=== PATIENT | female | born 1975 | race Two or more races ===

== ENCOUNTER → 2016-06-27 | Outpatient (REF) | payer OTHER | LOC: M LAB REF 17:00 | PROVIDERS: ATTEND Obstetrics & Gynecology | DX: Z12.4 Encounter for screening for malignant neoplasm of cervix (principal); R87.610 Atypical squamous cells of undetermined significance on cytologic smear of cervix (ASC-US) ==

== ENCOUNTER → 2016-07-07 | Outpatient (CLI) | payer OTHER ==
--- NOTE | 2016-07-07 17:54 | REPMRS ---
Patient History The patient states she has not had a clinical breast exam in over a year. Patient has history of endometrial cancer at age 35. Family history of prostate cancer in maternal grandfather, endometrial cancer in maternal aunt at age 16, and unknown cancer in maternal grandmother. Taking hormonal contraceptives for 2 years. Digital Mammo Screening Bilat: July 07, 2016 - Exam #: [id number] Bilateral CC and MLO view(s) were taken. Technologist: Shaila Yadav, Technologist No prior studies available for comparison. FINDINGS: The breast tissue is heterogeneously dense. This may lower the sensitivity of mammography. There is no evidence of dominant mass, architectural distortion, or clustered microcalcification typical of malignancy. ASSESSMENT: BI-RADS/ACR category 2 mammogram. Benign finding(s). Recommendation Routine screening mammogram of both breasts in 1 year (for women over age 40). This mammogram was interpreted with the aid of an FDA-approved computer-aided dectection system. Electronically Signed By: Eros Cutler MD 07/07/16 [id number]
--- NOTE | 2016-07-08 03:25 | REP ---
Clinical: Pelvic and cranial pain. History of cervical cancer. Technique: Transabdominal pelvic ultrasound followed by transvaginal examination for better evaluation of the endometrium and adnexa with color Doppler evaluation of the ovaries. Findings: Bladder is unremarkable and measures 8.5 x 5.6 x 3.6 cm . Normal anteverted uterus measures 7.8 x 3.6 x 4.8 cm . The endometrial complex measures 5.7 mm thickness. No discrete uterine or endometrial abnormalities are appreciated. IUD in satisfactory position. Small Nabothian cysts noted in the cervical region. Bilateral ovaries are normal in vascularity without evidence for torsion. Right ovary measures 2.5 x 2.4 x 2.8 cm with 1.6 cm resolving physiologic cyst ; R I = 0.51 . Left ovary measures 2.6 x 1.8 x 3.5 cm with normal follicle and 2.4 cm partially calcified mass suggesting teratoma/dermoid ; R I = 0.47. No pelvic fluid. No adnexal mass . Impression: 1. 2.4 cm partially calcified left ovarian mass possibly representing dermoid/teratoma. 2. Presumed bilateral follicles/physiologic cysts measuring up to 1.6 cm in the right ovary. 3. Normal appearance to the uterus with IUD in satisfactory position. Signed by Bolivar Cosby MD 07/08/2016 03:16 A
== END ==
LOC: M RAD 11:01
PROVIDERS: ATTEND Obstetrics & Gynecology
DX: Z12.31 Encounter for screening mammogram for malignant neoplasm of breast (principal); R10.2 Pelvic and perineal pain
CPT/HCPCS: 76830; 76856; 93976; G0202

== ENCOUNTER → 2016-08-19 | Outpatient (CLI) | payer OTHER ==
[~2016-08-19] MED LIST: ATOR1TAB19 PO; HYDR25T PO; LORA1TAB12 PO; MIREIUD IU; NEXI20CA PO; TOLT2TAB12 PO
== END ==
LOC: M EKG 07:19
PROVIDERS: ATTEND Anesthesiology
DX: G47.30 Sleep apnea, unspecified (principal)

== ENCOUNTER 2016-08-22 08:45 | Day surgery (SDC) | payer OTHER ==
[~2016-08-22] VITALS: Ht 167.6 cm; Wt 81.2 kg
[2016-08-22] MEDS ORDERED: LR 1,000 ML IV ONE (09:00)
[2016-08-22 09:36] LABS: MEAN CORPUSCULAR HEMOGLOBIN 33.4 pg (27.0-33.0); MEAN CORPUSCULAR HGB CONC 36.2 g/dl (32.0-36.5); MEAN CORPUSCULAR VOLUME 92.3 fl (80.0-96.0); WHITE BLOOD COUNT 7.8 K/mm3 (4.0-10.0)
[2016-08-22 09:55] LABS: CONTROL LINE HCG INT CTR LINE PRESENT
[2016-08-22] MEDS ORDERED: MIDAZOLAM INJ 2 MG/2 ML VIAL (J2250) IV PRN (10:15)
[2016-08-22] MEDS ORDERED: BUPIVACAINE HCL 0.25% 30 ML VIAL As Ordered ONE (11:45)
[2016-08-22] MEDS ORDERED: dexameTHASONE 4 MG/ML 1ML VIAL (J1100) As Ordered ONE (12:38)
[2016-08-22] MEDS ORDERED: LIDOCAINE 2% INJ 100 MG/5 ML SDV (FOR ANES.) As Ordered ONE (12:38)
[2016-08-22] MEDS ORDERED: ROCURONIUM BROMIDE 50 MG/5 ML VIAL As Ordered ONE ×2 (12:38→12:48)
[2016-08-22] MEDS ORDERED: MIDAZOLAM INJ 2 MG/2 ML VIAL (J2250) As Ordered ONE (12:38)
[2016-08-22] MEDS ORDERED: ONDANSETRON 4MG/2ML VIAL (J2405) As Ordered ONE (12:38)
[2016-08-22] MEDS ORDERED: fentaNYL 250 MCG/5 ML INJECTION (J3010) As Ordered ONE (12:38)
[2016-08-22] MEDS ORDERED: PROPOFOL 200 MG/20 ML VIAL As Ordered ONE (12:38)
[2016-08-22] MEDS ORDERED: HYDROmorphone HCL 2 MG/ML 1ML VIAL (J1170) As Ordered ONE (12:53)
[2016-08-22] MEDS ORDERED: METHYLENE BLUE 0.5% (5MG/ML) 10 ML AMP (PROVAYBLUE)(Q9968 PER 1MG) As Ordered ONE (12:57)
[2016-08-22] MEDS ORDERED: LABETALOL HCL 100 MG/20 ML VIAL As Ordered ONE (13:16)
[2016-08-22] MEDS ORDERED: KETOROLAC 60 MG/2 ML VIAL (J1885) As Ordered ONE (13:32)
[2016-08-22] MEDS ORDERED: NEOSTIGMINE 1MG/ML 5 ML SYRINGE (J2710) As Ordered ONE (13:32)
[2016-08-22] MEDS ORDERED: GLYCOPYRROLATE INJ 0.2 MG/ML 2 ML VIAL As Ordered ONE (13:32)
[2016-08-22] MEDS ORDERED: METOCLOPRAMIDE INJ 10MG/2ML VIAL (J2765) IV PRN (14:45)
[2016-08-22] MEDS ORDERED: MEPERIDINE INJ 25 MG/ML VIAL (J2175) IV PRN (14:45)
[2016-08-22] MEDS ORDERED: PERCOCET 5MG/325MG TAB PO PRN ×2 (14:45)
[2016-08-22] MEDS ORDERED: fentaNYL 100 MCG/2 ML INJECTION (J3010) IV PRN (14:45)
[2016-08-22] MEDS ORDERED: MORPHINE 4 MG/ML 1ML SYRINGE IV PRN (14:45)
[2016-08-22] MEDS ORDERED: HYDROmorphone HCL 1 MG/ML SYRINGE (J1170) IV PRN (14:45)
[2016-08-22] MEDS ORDERED: KETOROLAC 30 MG/ML VIAL (J1885) IV PRN (14:45)
[2016-08-22] MEDS ORDERED: PROMETHAZINE INJ 25 MG/ML VIAL (J2550) IV PRN (14:45)
[2016-08-22] MEDS ORDERED: LR 1,000 ML IV SCH (14:45)
[2016-08-22] MEDS ORDERED: ONDANSETRON 4MG/2ML VIAL (J2405) IV PRN (14:45)
[2016-08-22 16:30] VITALS: BP 108/66
--- NOTE | 2016-08-22 16:43 | RO ---
DATE OF PROCEDURE: 08/22/2016 PREPROCEDURE DIAGNOSES: 1. Abnormal uterine bleeding. 2. Left dermoid cyst. POSTPROCEDURE DIAGNOSES: 1. Abnormal uterine bleeding. 2. Left dermoid cyst. PROCEDURE: 1. Robotic assisted laparoscopic hysterectomy. 2. Left salpingo-oophorectomy. 3. Cystoscopy. 4. IUD removal. SURGEON: Bhavani Sheppard MD TRAVEL PT: ROBBIE Vigil ANESTHESIA: General endotracheal. ESTIMATED BLOOD LOSS: 100 mL INTRAVENOUS FLUIDS: 1700 mL of lactated Ringer's solution. SPECIMENS: Uterus and left adnexa. PREOPERATIVE ANTIBIOTICS: 2 grams of Ancef. OPERATIVE FINDINGS: The patient with a solid appearing left tumor consistent with dermoid cyst. A right follicular cyst which was drained intraoperatively. Normal appearing uterus. CYSTOSCOPIC FINDINGS: Good urethral efflux bilaterally. No evidence of trauma to the bladder or foreign bodies. DESCRIPTION OF OPERATION: After informed consent was obtained and written consent was reviewed, the patient was taken to the operating room where she was placed in lithotomy position. She was then prepped and draped in a normal sterile fashion. A time out in the operating room was then performed identifying the patient, procedures to be performed as well as drug allergies. A speculum was then placed revealing the cervix. A Sandra was used to remove the IUD. The anterior and posterior aspect of the cervix was in then stitched with an #0 Vicryl. The uterus was then sounded to 9 cm. A medium VCare uterine manipulator was then advanced through the cervical os for means to manipulate the uterus. The balloon was then insufflated with 10 mL of air. Cervical cap was then advanced down into the vagina. Instruments were removed from the patient's vagina. Castillo catheter was then placed and set to gravity. Gloves were changed and attention was turned to the patient's abdomen where a Veress needle was placed in the umbilicus and a pneumoperitoneum was obtained with CO2 gas. The supraumbilical area was then infused with 0.25% Marcaine. An incision was made in this area. A 12 mm trocar sleeve was advanced through the incision. Laparoscope was then replaced revealing intraabdominal placement. Two lateral ports, left and to the right of the umbilicus was placed. Each of these were infused with 0.25% Marcaine and 8 mm trocars were advanced through each one of these incisions under direct visualization. A fourth trocar was placed in the left side of the patient's abdomen. This area was also infused with 0.25% Marcaine. An incision was made in this area and an 8 mm trocar was also advanced under direct visualization. Next, the Da Eliza was then advanced to the patient's table and was docked utilizing the camera arm and two operative arms. Utilizing the Da Eliza equipment bipolar cautery the utero-ovarian ligaments were cauterized and ligated with good hemostasis noted bilaterally. The round ligaments on both sides were then cauterized and ligated with good hemostasis noted. The anterior lip of the broad ligaments were then dissected along the bladder creating a bladder flap. The remainder of the broad ligament and cardinal ligaments were then cauterized, ligated with good hemostasis noted. The uterine arteries then skeletonized bilaterally and were cauterized and ligated with good hemostasis noted. The anterior and posterior colpotomies were made. The uterus was removed vaginally. Surgical sites were inspected and found to be hemostatic. Next, left salpingo-oophorectomy was then performed. The left adnexa was then placed in traction. The right infundibulopelvic ligament was then cauterized and ligated with good hemostasis noted. The specimen was then brought to the vaginal incision. The vaginal cuff was then closed laparoscopically using the #2-0 V-Loc system in a running fashion. Surgical sites were inspected and noted to be hemostatic. The areas were then irrigated and suctioned. Next, cystoscopy was performed. The Castillo catheter was then removed. Cystoscope was then advanced through the urethra. Cystoscopy was performed revealing normal bladder mucosa and bilateral jets. The bladder was then drained. Gloves were changed and attention was turned to the patient's abdomen where all four skin incisions were closed with #4-0 Monocryl and was dressed with Dermabond. The patient was then taken out of the lithotomy position, was awakened from general anesthesia and taken to recovery in stable condition. Jami Doll, my vet assistant played an essential role in this operation. She assisted with identification of vital structures and manipulation of tissues, port placement as well as skin closure. Counts were correct. LAMONT
[2016-08-22 17:00] VITALS: BP 112/62
[2016-08-22] MEDS ORDERED: EXCEDRIN MIGRAINE TABLET PO PRN (17:30)
[2016-08-22] MEDS: LR 1,000 ML IV SCH ×2 (17:57→22:45)
[2016-08-22 18:00] VITALS: BP 100/69
[2016-08-22] MEDS: KETOROLAC 30 MG/ML VIAL (J1885) IV SCH (18:34)
[2016-08-22 19:00] VITALS: BP 110/70
[2016-08-22] MEDS ORDERED: zolPIDEM TARTRATE 10MG TAB PO PRN (21:00)
[2016-08-22] MEDS: hydrOXYzine 25 MG TAB PO SCH (21:00)
[2016-08-22 22:00] VITALS: BP 110/57
[2016-08-23] MEDS: KETOROLAC 30 MG/ML VIAL (J1885) IV SCH ×2 (00:46→06:07)
[2016-08-23 02:00] VITALS: BP 109/50
[2016-08-23] MEDS: LR 1,000 ML IV SCH (05:59)
[2016-08-23 06:00] VITALS: BP 106/54
[2016-08-23 07:13] LABS: MEAN CORPUSCULAR HEMOGLOBIN 32.6 pg (27.0-33.0); MEAN CORPUSCULAR HGB CONC 35.2 g/dl (32.0-36.5); MEAN CORPUSCULAR VOLUME 92.6 fl (80.0-96.0); RED CELL DISTRIBUTION WIDTH 12.3 % (11.5-14.5); WHITE BLOOD COUNT 17.2 K/mm3 (4.0-10.0)
[2016-08-23] MEDS: hydrOXYzine 25 MG TAB PO SCH (08:19)
== END 2016-08-23 08:40 | disposition home or self-care (01) ==
LOC: M SDC 08:45 → M MS5PR 16:24 → M SDC 08-23 08:40
PROVIDERS: ATTEND Obstetrics & Gynecology
DX: N93.9 Abnormal uterine and vaginal bleeding, unspecified (principal); D27.1 Benign neoplasm of left ovary; K21.9 Gastro-esophageal reflux disease without esophagitis; E78.5 Hyperlipidemia, unspecified; K22.4 Dyskinesia of esophagus; K58.9 Irritable bowel syndrome, unspecified; M12.9 Arthropathy, unspecified; M54.9 Dorsalgia, unspecified; F41.9 Anxiety disorder, unspecified; G43.909 Migraine, unspecified, not intractable, without status migrainosus; F43.10 Post-traumatic stress disorder, unspecified; R06.83 Snoring; J32.9 Chronic sinusitis, unspecified; R32 Unspecified urinary incontinence; F12.90 Cannabis use, unspecified, uncomplicated; F17.210 Nicotine dependence, cigarettes, uncomplicated; Z88.1 Allergy status to other antibiotic agents; Z88.8 Allergy status to other drugs, medicaments and biological substances; Z79.899 Other long term (current) drug therapy; Z86.2 Personal history of diseases of the blood and blood-forming organs and certain disorders involving the immune mechanism; Z87.81 Personal history of (healed) traumatic fracture; Z87.820 Personal history of traumatic brain injury; Z97.5 Presence of (intrauterine) contraceptive device
CPT/HCPCS: 36415; 58301; 58571; 84703; 85027; 86850; 86900; 86901; 88307; 96374; 96375; A6024; J0690; J1100; J1170; J1885; J2250; J2405; J2710; J3010; Q9968

== ENCOUNTER → 2017-02-12 | Outpatient (CLI) | payer OTHER ==
[~2017-02-12] MED LIST changes: +HYDR-3363 PO; -HYDR25T PO
--- NOTE | 2017-02-12 16:15 | REP ---
Right foot four views: There is a nondisplaced fracture of the base of the fifth digit metatarsal. There is no other fracture. No dislocation. Mineralization joint spaces otherwise are unremarkable. No calcifications or foreign bodies. Left foot four views: Mineralization and joint spaces are normal. There is no fracture or dislocation. No calcifications or foreign bodies. Impression: Negative left foot. Signed by Conner Wyatt MD 02/12/2017 04:07 P
--- NOTE | 2017-02-12 16:17 | REP ---
Sacrum and coccyx three views: The sacroiliac articulations are unremarkable. There are pelvic calcifications, likely phleboliths. The sacral ala and foramen are unremarkable. No sacral fracture is identified on plain films. There is continued clinical concern consider follow-up MRI or CT. Signed by Conner Wyatt MD 02/12/2017 04:09 P
--- NOTE | 2017-02-12 17:13 | REP ---
RIGHT SHOULDER, FOUR VIEWS: There is no evidence of an acute fracture, dislocation or intrinsic bone disease. I do not see significant arthritic change. IMPRESSION: No fracture or dislocation. Further evaluation may be made with MRI if clinically indicated. Signed by Conner Cleaning MD 02/13/2017 04:55 P
== END ==
LOC: M LRY 15:04
PROVIDERS: ATTEND Family Medicine
DX: S92.354A Nondisplaced fracture of fifth metatarsal bone, right foot, initial encounter for closed fracture (principal); M79.672 Pain in left foot; M25.511 Pain in right shoulder; M53.3 Sacrococcygeal disorders, not elsewhere classified

== ENCOUNTER → 2017-02-13 | Outpatient (REF) | payer OTHER ==
[2017-02-13 23:07] LABS: CHOLESTEROL LEVEL 258 MG/DL (<200); TRIGLYCERIDES LEVEL 250 MG/DL (<150)
== END ==
LOC: M SFHCLERA 09:25
PROVIDERS: ATTEND Family Medicine
DX: Z13.220 Encounter for screening for lipoid disorders (principal); Z13.1 Encounter for screening for diabetes mellitus; M79.671 Pain in right foot; M79.672 Pain in left foot; M25.561 Pain in right knee; M25.562 Pain in left knee; M25.511 Pain in right shoulder

== ENCOUNTER → 2017-04-03 | Outpatient (CLI) | payer OTHER ==
[2017-04-03 22:00] LABS: COMPLEMENT C3 89.9 MG/DL (90-180); COMPLEMENT C4 19.9 MG/DL (10-40); IMMUNOGLOBULIN G 578 MG/DL (681-1648); IMMUNOGLOBULIN M 156 MG/DL (40-230)
[2017-04-10 00:06] LABS: D001-IgE D pteronyssinus 0.15 kU/L (Class 0/I); E001-IgE Cat Epith/Dander < 0.10 kU/L (Class 0); E005-IgE Dog Dander < 0.10 kU/L (Class 0); F002-IgE Milk < 0.10 kU/L (Class 0); F004-IgE Wheat < 0.10 kU/L (Class 0); F005-IGE RYE <0.10 kU/L (Class 0); F006-IGE BARLEY <0.10 kU/L (Class 0); F007-IGE OAT <0.10 kU/L (Class 0); F008-IGE CORN <0.10 kU/L (Class 0); F009-IGE RICE <0.10 kU/L (Class 0); F010-IGE SESAME SEED <0.10 kU/L (Class 0); F012-IGE GREEN PEA <0.10 kU/L (Class 0); F013-IgE Peanut < 0.10 kU/L (Class 0); F014-IgE Soybean < 0.10 kU/L (Class 0); F017-IGE FILBERT <0.10 kU/L (Class 0); F018-IGE BRAZIL NUT <0.10 kU/L (Class 0); F020-IGE ALMOND <0.10 kU/L (Class 0); F023-IGE CRAB <0.10 kU/L (Class 0); F024-IGE SHRIMP <0.10 kU/L (Class 0); F025-IGE TOMATO <0.10 kU/L (Class 0); F026-IGE PORK <0.10 kU/L (Class 0); F026-IgE Pork < 0.10 kU/L (Class 0); F027-IGE BEEF <0.10 kU/L (Class 0); F027-IgE Beef < 0.10 kU/L (Class 0); F031-IGE CARROT <0.10 kU/L (Class 0); F033-IGE ORANGE <0.10 kU/L (Class 0); F035-IGE POTATO, WHITE <0.10 kU/L (Class 0); F040-IGE TUNA <0.10 kU/L (Class 0); F041-IGE SALMON <0.10 kU/L (Class 0); F044-IGE STRAWBERRY <0.10 kU/L (Class 0); F048-IGE ONIONS <0.10 kU/L (Class 0); F049-IGE APPLE <0.10 kU/L (Class 0); F050-IGE MACKEREL <0.10 kU/L (Class 0); F076-IGE ALPHA LACTALBUMIN <0.10 kU/L (Class 0); F077-IGE LACTOGLOBULIN, BETA <0.10 kU/L (Class 0); F078-IGE CASEIN <0.10 kU/L (Class 0); F080-IGE LOBSTER <0.10 kU/L (Class 0); F081-IGE CHEDDAR CHEESE <0.10 kU/L (Class 0); F082-IGE CHEESE MOLD <0.10 kU/L (Class 0); F083-IGE CHICKEN <0.10 kU/L (Class 0); F092-IGE BANANA 0.37 kU/L (Class I); F094-IGE PEAR <0.10 kU/L (Class 0); F095-IGE PEACH/NECTARINE <0.10 kU/L (Class 0); F201-IGE PECAN NUT <0.10 kU/L (Class 0); F202-IGE CASHEW NUT <0.10 kU/L (Class 0); F204-IGE TROUT <0.10 kU/L (Class 0); F207-IGE CLAM <0.10 kU/L (Class 0); F208-IGE LEMON <0.10 kU/L (Class 0); F209-IGE GRAPFRUIT <0.10 kU/L (Class 0); F214 IgE SPINACH <0.10 kU/L (Class 0); F215-IGE LETTUCE <0.10 kU/L (Class 0); F216-IGE CABBAGE/HORSE RADISH <0.10 kU/L (Class 0); F225-IGE PUMPK/SUM SQU/ZUCC <0.10 kU/L (Class 0); F235-IGE LENTIL <0.10 kU/L (Class 0); F244-IGE CUCUMBER <0.10 kU/L (Class 0); F245-IgE Egg, Whole < 0.10 kU/L (Class 0); F256-IGE WALNUT <0.10 kU/L (Class 0); F259-IGE GRAPE/WINE VINEGAR <0.10 kU/L (Class 0); F260-IGE BROCCOLI <0.10 kU/L (Class 0); F280-IGE BLACK PEPPER <0.10 kU/L (Class 0); F287-IGE KIDNEY BEAN <0.10 kU/L (Class 0); F290-IGE OYSTER <0.10 kU/L (Class 0); F291-IgE Cauliflower <0.10 kU/L (Class 0); F302-IGE TANGERINE <0.10 kU/L (Class 0); F303-IGE HALIBUT <0.10 kU/L (Class 0); F306-IGE LIME <0.10 kU/L (Class 0); F315-IGE GR BEAN/ STRING BEAN <0.10 kU/L (Class 0); F338-IGE SCALLOP <0.10 kU/L (Class 0); F343-IGE RASPBERRY <0.10 kU/L (Class 0); F415-IGE WALLEYE PIKE <0.10 kU/L (Class 0); FX02-IgE Food Mix (Sea Foods) Negative (.); G002-IgE Bermuda Grass < 0.10 kU/L (Class 0); G008-IgE Kentucky Bluegrass < 0.10 kU/L (Class 0); M001-IgE Penicillium chrysogen < 0.10 kU/L (Class 0); M002 IgE Cladosporium herbaru < 0.10 kU/L (Class 0); M003 IgE Aspergillus fumigatu < 0.10 kU/L (Class 0); M006-IgE Alternaria alternata < 0.10 kU/L (Class 0); T001-IgE Maple/Box Elder < 0.10 kU/L (Class 0); T003-IgE Common Silver Birch < 0.10 kU/L (Class 0); T006-IgE Cedar, Mountain < 0.10 kU/L (Class 0); T007-IgE Oak, White < 0.10 kU/L (Class 0); T008-IgE Elm, American 0.17 kU/L (Class 0/I); T015-IgE Ash, White < 0.10 kU/L (Class 0); T041-IgE Hickory, White 0.14 kU/L (Class 0/I); T070-IgE White Mulberry < 0.10 kU/L (Class 0); W001-IgE Ragweed, Short < 0.10 kU/L (Class 0); W009-IgE Plantain, English < 0.10 kU/L (Class 0); W014-IgE Pigweed, Rough < 0.10 kU/L (Class 0); W018-IgE Sheep Sorrel < 0.10 kU/L (Class 0)
[2017-04-10 00:06] LABS: ALPHA 1 ANTITRYPSIN 118 mg/dL (90-200)
== END ==
LOC: M LRY 14:08
DX: J30.1 Allergic rhinitis due to pollen (principal); J32.0 Chronic maxillary sinusitis; H10.45 Other chronic allergic conjunctivitis; K21.9 Gastro-esophageal reflux disease without esophagitis; R05 Cough
CPT/HCPCS: 82785

== ENCOUNTER → 2017-05-05 | Outpatient (CLI) | payer OTHER | LOC: M LRY 17:03 | DX: S89.91XA Unspecified injury of right lower leg, initial encounter (principal); X58.XXXA Exposure to other specified factors, initial encounter; Y92.9 Unspecified place or not applicable; M17.11 Unilateral primary osteoarthritis, right knee | CPT/HCPCS: 73564 ==

== ENCOUNTER 2017-05-23 20:22 | Emergency (ER) | payer OTHER | END 2017-05-23 22:50 | disposition left against medical advice (07) | LOC: M ED 20:22 | DX: Z46.89 Encounter for fitting and adjustment of other specified devices (principal); Z53.21 Procedure and treatment not carried out due to patient leaving prior to being seen by health care provider ==

== ENCOUNTER → 2017-05-25 | Outpatient (CLI) | payer OTHER | LOC: M PLARAD 08:42 | DX: M19.011 Primary osteoarthritis, right shoulder (principal); M75.81 Other shoulder lesions, right shoulder | CPT/HCPCS: 73221 ==

== ENCOUNTER → 2018-06-04 | Outpatient (CLI) | payer BC, OTHER ==
[~2018-06-04] MED LIST changes: +GABA-843; +MIRE1IUD IU; -MIREIUD IU; +VENTAER
--- NOTE | 2018-06-04 12:40 | REP ---
MRI LEFT KNEE: TECHNIQUE: Axial proton density fat saturation, sagittal proton density T2 STIR, water excitation, coronal proton density, proton density fat saturation. There is a small vertical tear of the posterior horn of the medial meniscus seen on coronal images. Otherwise no meniscal tear is seen. Otherwise, no other meniscal tear is seen. The cruciate and collateral ligaments are intact. The extensor mechanism is intact. There is mild diffuse chondromalacia of the patella. There is moderate diffuse chondromalacia of the femoral condyles and medial tibial plateau. Mild subchondral marrow edema is seen centrally in the tibial plateau near the tibial spines. There is a small joint effusion. Medial and lateral patellar retinacula are intact. Elongated Estes's cyst is seen in the medial popliteal fossa containing a few internal septations with a craniocaudal dimension of 3.5 cm, AP dimension of 1.2 cm and transverse 1.1 cm. IMPRESSION: Small vertical tear under the surface posterior horn medial meniscus. Cruciate and collateral ligaments intact. 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 Mild subchondral marrow edema centrally in the tibial plateau. Small joint effusion with septated Estes's cyst in the medial popliteal fossa. Electronically Signed by Conner Cleaning MD 06/04/2018 04:19 P
== END ==
LOC: M RAD 08:43
PROVIDERS: ATTEND Orthopaedic Surgery Sports Medicine
DX: M71.21 Synovial cyst of popliteal space [Baker], right knee (principal); S83.242A Other tear of medial meniscus, current injury, left knee, initial encounter; M22.40 Chondromalacia patellae, unspecified knee; M25.462 Effusion, left knee; Y93.9 Activity, unspecified; Y99.9 Unspecified external cause status; Y92.9 Unspecified place or not applicable; X58.XXXA Exposure to other specified factors, initial encounter

== ENCOUNTER → 2018-07-30 | Outpatient (CLI) | payer BC ==
[2018-07-30 14:25] LABS: BASO % 0.6 % (0.0-1.0); EOS # 0.2 10^3/uL (0.0-0.50); EOS % 2.1 % (0.0-3.0); HEMATOCRIT 41.3 % (36.0-47.0); HEMOGLOBIN 14.2 g/dl (12.0-15.5); LYMPH # 1.9 10^3/uL (1.5-4.5); MEAN CORPUSCULAR HEMOGLOBIN 31.9 pg (27.0-33.0); MEAN CORPUSCULAR HGB CONC 34.4 g/dl (32.0-36.5); MEAN CORPUSCULAR VOLUME 92.8 fl (80.0-96.0); MONO # 0.5 10^3/uL (0.0-0.8); MONO % 7.1 % (0.0-5.0); NEUTROPHILS # 4.5 10^3/uL (1.8-7.7); NEUTROPHILS % 62.8 % (36.0-66.0); PLATELET COUNT, AUTOMATED 320 10^3/uL (150-450); RED BLOOD COUNT 4.45 10^6/uL (4.00-5.40); WHITE BLOOD COUNT 7.2 10^3/uL (4.0-10.0)
[2018-07-30 15:06] LABS: ERYTHROCYTE SEDIMENTATION RATE 8 mm/hr (0-20)
[2018-07-30 15:09] LABS: RHEUMATOID FACTOR QUANT < 10.0 IU/ML (<15.0); THYROID STIMULATING HORMONE 0.578 uIU/ML (0.358-3.740); THYROXINE (T4) 10.7 UG/DL (4.5-12.0)
[2018-07-30 17:01] LABS: THYROGLOBULIN ANTIBODY 66.9 U/ML (<60.0); THYROID PEROXIDASE ANTIBODY < 28.0 U/ML (<60.0); TOTAL T3 101.8 NG/DL (60.0-181.0)
== END ==
LOC: M SMT 11:49
PROVIDERS: ATTEND Allergy & Immunology Allergy
DX: J45.30 Mild persistent asthma, uncomplicated (principal); L50.1 Idiopathic urticaria; L50.3 Dermatographic urticaria

== ENCOUNTER → 2018-10-03 | Outpatient (REF) | payer BC | LOC: M SFHCLERA 16:09 | PROVIDERS: ATTEND Physician Assistant | DX: J02.9 Acute pharyngitis, unspecified (principal) ==

== ENCOUNTER → 2019-03-25 | Outpatient (REF) | payer BC ==
[~2019-03-25] MED LIST changes: -LORA1TAB12 PO; +LORA1TAB4 PO
[2019-03-25 13:28] LABS: BASO % 0.7 % (0.0-1.0); EOS # 0.2 10^3/uL (0.0-0.5); EOS % 2.7 % (0.0-3.0); HEMATOCRIT 42.8 % (36.0-47.0); HEMOGLOBIN 13.9 g/dl (12.0-15.5); LYMPH # 1.7 10^3/uL (1.5-5.0); LYMPH % 29.2 % (24.0-44.0); MEAN CORPUSCULAR HEMOGLOBIN 29.5 pg (27.0-33.0); MEAN CORPUSCULAR HGB CONC 32.5 g/dl (32.0-36.5); MEAN CORPUSCULAR VOLUME 90.9 fl (80.0-96.0); MONO # 0.4 10^3/uL (0.0-0.8); MONO % 7.6 % (0.0-5.0); NEUTROPHILS # 3.4 10^3/uL (1.5-8.5); NEUTROPHILS % 59.1 % (36.0-66.0); PLATELET COUNT, AUTOMATED 336 10^3/uL (150-450); RED BLOOD COUNT 4.71 10^6/uL (4.00-5.40); WHITE BLOOD COUNT 5.7 10^3/uL (4.0-10.0)
[2019-03-25 13:56] LABS: ERYTHROCYTE SEDIMENTATION RATE 9 mm/hr (0-20)
[2019-03-25 13:58] LABS: ALBUMIN 4.2 GM/DL (3.2-5.2); ALT/SGPT 37 U/L (12-78); BILIRUBIN,TOTAL 1.5 MG/DL (0.2-1.0); BLOOD UREA NITROGEN 13 MG/DL (7-18); C REACTIVE PROTEIN QUANTITATIV 0.68 MG/DL (0.00-0.30); CALCIUM LEVEL 8.9 MG/DL (8.5-10.1); CARBON DIOXIDE LEVEL 27 MEQ/L (21-32); CHLORIDE LEVEL 104 MEQ/L (98-107); CREATININE FOR GFR 0.75 MG/DL (0.55-1.30); GLOMERULAR FILTRATION RATE > 60.0 (>58); GLUCOSE, FASTING 106 MG/DL (70-100); POTASSIUM SERUM 4.1 MEQ/L (3.5-5.1); RHEUMATOID FACTOR QUANT < 10.0 IU/ML (<15.0); SODIUM LEVEL 137 MEQ/L (136-145)
[2019-03-28 00:08] LABS: CYCLIC CITRULLINATED PEPTIDE 10 units (0-19); Lyme Disease IgG/IgM Antibodie <0.91 ISR (0.00-0.90); Lyme Disease IgM Ab Quantitati <0.80 index (0.00-0.79)
== END ==
LOC: M SFHCRHEU 09:59
PROVIDERS: ATTEND Internal Medicine
DX: M25.50 Pain in unspecified joint (principal)

== ENCOUNTER → 2019-04-22 | Outpatient (REF) | payer BC ==
[2019-04-22 13:15] LABS: C REACTIVE PROTEIN QUANTITATIV 0.57 MG/DL (0.00-0.30); COMPLEMENT C3 154 MG/DL (90-180); COMPLEMENT C4 27 MG/DL (10-40); CPK CREATINE PHOSPHOKINASE 45 U/L (26-192)
[2019-04-22 13:35] LABS: HEPATITIS B SURFACE ANTIGEN NEGATIVE (NEGATIVE)
[2019-04-22 14:04] LABS: HEPATITIS C VIRUS ABY INDEX < 0.0 INDEX (<0.8)
[2019-04-27 14:10] LABS: ANA (HEP2) Negative (.); ANGIOTENSIN 1 CONVERTING ENZYM 38 U/L (14-82); ANTI DS-DNA AB Negative (Negative); HEPATITIS B CORE ANTIBODY IGG Negative (Negative); HLA-B27 Positive (.); RNP ANTIBODY < 0.2 AI (0.0-0.9); SMITHS ANTIBODY < 0.2 AI (0.0-0.9); SSA SJOGRENS A <0.2 AI (0.0-0.9); SSB SJOGRENS B <0.2 AI (0.0-0.9)
== END ==
LOC: M SFHCRHEU 09:41
PROVIDERS: ATTEND Internal Medicine
DX: M25.50 Pain in unspecified joint (principal); H57.11 Ocular pain, right eye

== ENCOUNTER → 2019-04-28 | Outpatient (CLI) | payer BC ==
--- NOTE | 2019-04-28 09:13 | REP ---
MRI sacrum and SI joints without contrast: History: Polyarthralgia. Several years of pain. Comparison radiographs February 12, 2017. Technique: Oblique coronal, axial and sagittal imaging planes were utilized. T1 and T2-weighted scans were obtained with and without fat saturation. MRI findings: Cortical and medullary bone signal intensity are normal in the sacrum and on both sides of the SI joints. There is no evidence to suggest SI joint inflammation or edema. No ankylosis or erosive change is appreciated. The presacral and retro sacral soft tissues are unremarkable. No abnormalities noted in the coccyx. There is degenerative disc disease at L5-S1 with mild diffuse disc bulging at L5-S1 and at L4-5. The patient is status post hysterectomy. The right ovary is seen and appears normal. The left ovary is not seen in the field of view. There is a wraparound artifact over the upper and mid sacrum on axial inversion recovery T2-weighted sequence. No mass or adenopathy is seen. Impression: No MRI evidence to suggest sacroiliac or sacral lesion. The patient is status post hysterectomy. Degenerative disc disease at L4-5 and L5-S1. Electronically Signed by Patel Cutler MD 04/28/2019 02:30 P
== END ==
LOC: M RAD 07:08
PROVIDERS: ATTEND Internal Medicine
DX: M13.0 Polyarthritis, unspecified (principal)

== ENCOUNTER → 2022-01-30 | Outpatient (CLI) | payer BC ==
[~2022-01-30] MED LIST changes: +GABA-282; -GABA-843
== END ==
LOC: M RAD 11:18
PROVIDERS: ATTEND Orthopaedic Surgery Adult Reconstructive Orthopaedic Surgery
DX: M25.551 Pain in right hip (principal); M85.851 Other specified disorders of bone density and structure, right thigh

== ENCOUNTER → 2022-02-12 | Outpatient (CLI) | payer BC ==
[~2022-02-12] MED LIST changes: +**SFHN** LIDOCAINE 1% MDV 20ML VIAL ONE; +ALBU2.5V10; +IBUP200C33 PO; +ISOVUE-300 61% 50ML VIAL ONE; +PROHANCE 279.3MG/ML 5ML VIAL ONE
== END ==
LOC: M PLAIMG 13:47
PROVIDERS: ATTEND Orthopaedic Surgery Adult Reconstructive Orthopaedic Surgery
DX: M25.851 Other specified joint disorders, right hip (principal)
CPT/HCPCS: 27093; 73723; 77002; A9576

== ENCOUNTER → 2022-02-18 | Outpatient (CLI) | payer BC ==
[~2022-02-18] MED LIST changes: -**SFHN** LIDOCAINE 1% MDV 20ML VIAL ONE; -ISOVUE-300 61% 50ML VIAL ONE; -PROHANCE 279.3MG/ML 5ML VIAL ONE
== END ==
LOC: M SOG 09:03
PROVIDERS: ATTEND Orthopaedic Surgery
DX: M25.511 Pain in right shoulder (principal)

== ENCOUNTER → 2022-03-05 | Outpatient (CLI) | payer BC ==
[~2022-03-05] MED LIST changes: +MOTR200T44 PO
== END ==
LOC: M PLAIMG 10:34
PROVIDERS: ATTEND Orthopaedic Surgery
DX: R93.7 Abnormal findings on diagnostic imaging of other parts of musculoskeletal system (principal); M50.221 Other cervical disc displacement at C4-C5 level; M47.812 Spondylosis without myelopathy or radiculopathy, cervical region

== ENCOUNTER → 2022-03-07 | Outpatient (CLI) | payer BC ==
[~2022-03-07] MED LIST changes: +LIDOCAINE 1% MDV 20ML VIAL As Ordered ONE
[2022-03-07 09:55] VITALS: BP 168/89
== END ==
LOC: M IRPRO 08:03
PROVIDERS: ATTEND Specialist
DX: C79.51 Secondary malignant neoplasm of bone (principal); Z85.41 Personal history of malignant neoplasm of cervix uteri

== ENCOUNTER → 2022-03-12 | Outpatient (CLI) | payer BC ==
[~2022-03-12] MED LIST changes: +HYDR-3713 PO; -LIDOCAINE 1% MDV 20ML VIAL As Ordered ONE
[2022-03-12 11:45] LABS: INR 0.89; PROTHROMBIN TIME 12.2 SECONDS (12.5-14.5)
[2022-03-12 11:59] LABS: BILIRUBIN,DIRECT 0.3 MG/DL (<0.4)
[2022-03-12 12:00] LABS: IRON (FE) 97 UG/DL (50-170)
[2022-03-12 12:01] LABS: ALKALINE PHOSPHATASE 262 U/L (46-116); ALT/SGPT 81 U/L (7.0-40); AST/SGOT 17 U/L (<34); BILIRUBIN,TOTAL 1.2 MG/DL (0.3-1.2); PERCENT SATURATION 29.3 % (13.2-45.0); TOTAL IRON BINDING CAPACITY 331 UG/DL (250-425); TOTAL PROTEIN 6.9 G/DL (5.7-8.2)
[2022-03-12 12:03] LABS: IMMUNOGLOBULIN A 142.8 MG/DL (40-350)
[2022-03-12 12:13] LABS: HEPATITIS B SURFACE ANTIGEN NEGATIVE (NEGATIVE)
[2022-03-12 12:34] LABS: HEPATITIS B CORE ANTIBODY IGM NEGATIVE (NEGATIVE); HEPATITIS C VIRUS ABY INDEX 0.1 INDEX (<0.8)
[2022-03-13 17:07] LABS: CERULOPLASMIN 34.7 mg/dL (19.0-39.0)
[2022-03-14 14:08] LABS: ANCA-ATYPICAL <1:20 titer (Neg:<1:20); ANTI-MITOCHONDRIAL ANTIBODY <20.0 Units (0.0-20.0); ANTINUCLEAR ANTIBODIES DIRECT Negative (Negative); CYTOPLASMIC NEUTROP AB ANCA-C <1:20 titer (Neg:<1:20); LIVER-KIDNEY MICROSOMAL ABY <20.1 Units (0.0-20.0); PERINUCLEAR AB ANCA-P <1:20 titer (Neg:<1:20); TISSUE TRANSGLUTAMINASE IgA <2 U/mL (0-3)
== END ==
LOC: M LAB 10:18
PROVIDERS: ATTEND Internal Medicine Gastroenterology
DX: R94.5 Abnormal results of liver function studies (principal)

== ENCOUNTER → 2022-03-13 | Outpatient (CLI) | payer BC | LOC: M SOG 16:16 | PROVIDERS: ATTEND Orthopaedic Surgery | DX: R93.7 Abnormal findings on diagnostic imaging of other parts of musculoskeletal system (principal); M16.11 Unilateral primary osteoarthritis, right hip ==

== ENCOUNTER → 2022-03-15 | Outpatient (CLI) | payer BC | LOC: M RAD 09:37 | PROVIDERS: ATTEND Orthopaedic Surgery | DX: R93.7 Abnormal findings on diagnostic imaging of other parts of musculoskeletal system (principal); M25.511 Pain in right shoulder ==

== ENCOUNTER → 2022-03-24 | Outpatient (CLI) | payer BC ==
[~2022-03-24] MED LIST changes: +DIAZ5TAB PO; +ZOLP5TAB PO
== END ==
LOC: M ONCR 14:15
PROVIDERS: ATTEND General Practice
DX: C79.51 Secondary malignant neoplasm of bone (principal); R91.8 Other nonspecific abnormal finding of lung field; F17.210 Nicotine dependence, cigarettes, uncomplicated; G47.00 Insomnia, unspecified; I10 Essential (primary) hypertension; K58.9 Irritable bowel syndrome, unspecified; Z79.899 Other long term (current) drug therapy; Z80.52 Family history of malignant neoplasm of bladder; Z85.41 Personal history of malignant neoplasm of cervix uteri; Z88.1 Allergy status to other antibiotic agents; Z88.8 Allergy status to other drugs, medicaments and biological substances

== ENCOUNTER → 2022-03-31 | Outpatient (CLI) | payer BC ==
[~2022-03-31] MED LIST changes: +GASTROGRAFIN SOLUTION 30ML As Ordered ONE; +ISOVUE-370 76% 100ML VIAL As Ordered ONE; +TRAZ1TAB14 PO; +ZOLP6.2517 PO
== END ==
LOC: M RAD 13:55
PROVIDERS: ATTEND Specialist
DX: C79.9 Secondary malignant neoplasm of unspecified site (principal); K57.90 Diverticulosis of intestine, part unspecified, without perforation or abscess without bleeding; R91.8 Other nonspecific abnormal finding of lung field; C73 Malignant neoplasm of thyroid gland

== ENCOUNTER → 2022-04-01 | Outpatient (RCR) | payer BC ==
[~2022-04-01] MED LIST changes: -GASTROGRAFIN SOLUTION 30ML As Ordered ONE; -ISOVUE-370 76% 100ML VIAL As Ordered ONE
== END ==
LOC: M ONCR 03-26 10:23
PROVIDERS: ATTEND General Practice
DX: C79.51 Secondary malignant neoplasm of bone (principal); C34.11 Malignant neoplasm of upper lobe, right bronchus or lung

== ENCOUNTER 2022-04-02 11:05 | Outpatient (RCR) | payer BC ==
[~2022-04-02 11:05] MED LIST changes: -LIDOCAINE 1% MDV 20ML VIAL As Ordered ONE; -MIDAZOLAM INJ 2MG/2ML VIAL As Ordered ONE; -NS 1,000 ML IV SCH; -PROMETHAZINE 25MG/ML 1ML VIAL As Ordered ONE; -ZOLP12.518 PO; -ceFAZolin 2 GM/D5W 50 ML IV BAG As Ordered ONE; -ceFAZolin SOD 2 GM in IV 1 EA IV ONE; -diphenhydrAMINE 50MG/ML VIAL As Ordered ONE; -fentaNYL 100 MCG/2 ML INJECTION As Ordered ONE
[2022-04-07] MEDS ORDERED: ZOLP12.518 PO (15:07)
[2022-04-10] MEDS ORDERED: LIDO1CRE42 TOP (14:49)
[2022-04-14] MEDS ORDERED: DEXA4TA PO (17:28)
[2022-04-14] MEDS ORDERED: FOLI1TAB11 PO (17:30)
[2022-05-01] MEDS ORDERED: ONDA-84 PO (10:37)
[2022-05-01] MEDS ORDERED: PROC10TA5 PO (10:37)
[2022-05-02] MEDS ORDERED: ONDA-84 PO ×2 (13:49→15:21)
[2022-05-02] MEDS ORDERED: PROC10TA5 PO ×2 (13:49→15:21)
== END 2022-04-29 ==
LOC: M ONCR 11:05
PROVIDERS: ATTEND General Practice
DX: C34.11 Malignant neoplasm of upper lobe, right bronchus or lung (principal); C79.51 Secondary malignant neoplasm of bone

== ENCOUNTER → 2022-04-02 | Outpatient (CLI) | payer BC ==
[~2022-04-02] MED LIST changes: +LIDOCAINE 1% MDV 20ML VIAL As Ordered ONE; +MIDAZOLAM INJ 2MG/2ML VIAL As Ordered ONE; +NS 1,000 ML IV SCH; +PROMETHAZINE 25MG/ML 1ML VIAL As Ordered ONE; +ZOLP12.518 PO; +ceFAZolin 2 GM/D5W 50 ML IV BAG As Ordered ONE; +ceFAZolin SOD 2 GM in IV 1 EA IV ONE; +diphenhydrAMINE 50MG/ML VIAL As Ordered ONE; +fentaNYL 100 MCG/2 ML INJECTION As Ordered ONE
[2022-04-02 15:00] VITALS: BP 137/74
== END ==
LOC: M IRPRO 10:19
PROVIDERS: ATTEND Specialist
DX: C34.90 Malignant neoplasm of unspecified part of unspecified bronchus or lung (principal)
CPT/HCPCS: 36561; 87635; 99152; 99153; C1769; C1788; C1894

== ENCOUNTER → 2022-04-03 | Outpatient (CLI) | payer BC ==
[~2022-04-03] MED LIST changes: +ZOLP12.518 PO
== END ==
LOC: M PLARAD 08:53
PROVIDERS: ATTEND General Practice
DX: C34.11 Malignant neoplasm of upper lobe, right bronchus or lung (principal); J32.2 Chronic ethmoidal sinusitis; J32.3 Chronic sphenoidal sinusitis

== ENCOUNTER 2022-04-11 08:15 | Outpatient (RCR) | payer BC ==
[~2022-04-11 08:15] MED LIST changes: +LIDO1CRE42 TOP
[2022-04-14] MEDS ORDERED: DEXA4TA PO (17:28)
[2022-04-14] MEDS ORDERED: FOLI1TAB11 PO (17:30)
[2022-05-01] MEDS ORDERED: PROC10TA5 PO (10:37)
[2022-05-01] MEDS ORDERED: ONDA-84 PO (10:37)
[2022-05-02] MEDS ORDERED: ONDA-84 PO ×2 (13:49→15:21)
[2022-05-02] MEDS ORDERED: PROC10TA5 PO ×2 (13:49→15:21)
== END 2022-04-29 ==
LOC: M ONCR 08:15
PROVIDERS: ATTEND General Practice
DX: C34.11 Malignant neoplasm of upper lobe, right bronchus or lung (principal); C79.51 Secondary malignant neoplasm of bone

== ENCOUNTER → 2022-05-13 | Outpatient (CLI) | payer BC ==
[~2022-05-13] MED LIST changes: +CIPR-250 PO; +DEXA4TA PO; +DIPH2.5T15 PO; +ESOM20CA25 PO; +FAMO20TA PO; +FOLI1TAB11 PO; +ONDA-84 PO; +PROC10TA5 PO
== END ==
LOC: M SOG 08:55
PROVIDERS: ATTEND Orthopaedic Surgery
DX: C79.51 Secondary malignant neoplasm of bone (principal); M25.511 Pain in right shoulder; M16.0 Bilateral primary osteoarthritis of hip

== ENCOUNTER → 2022-06-17 | Outpatient (CLI) | payer BC ==
[~2022-06-17] MED LIST changes: +ACET650T15 PO; +AMLO1TAB24 PO; +CYCL-707 PO; +PHEN-500 PO
== END ==
LOC: M ONCR 08:06
PROVIDERS: ATTEND General Practice
DX: C34.11 Malignant neoplasm of upper lobe, right bronchus or lung (principal); F17.218 Nicotine dependence, cigarettes, with other nicotine-induced disorders; F12.90 Cannabis use, unspecified, uncomplicated; R31.9 Hematuria, unspecified; R51.9 Headache, unspecified; Z79.52 Long term (current) use of systemic steroids; Z79.899 Other long term (current) drug therapy; Z88.1 Allergy status to other antibiotic agents; Z88.8 Allergy status to other drugs, medicaments and biological substances; Z92.3 Personal history of irradiation

== ENCOUNTER → 2022-06-17 | Outpatient (CLI) | payer BC | LOC: M EKG 09:04 | PROVIDERS: ATTEND General Practice | DX: C34.11 Malignant neoplasm of upper lobe, right bronchus or lung (principal) ==

== ENCOUNTER → 2022-06-24 | Outpatient (CLI) | payer BC ==
[~2022-06-24] MED LIST changes: +CEFD300CAP PO
== END ==
LOC: M ONCR 09:57
PROVIDERS: ATTEND General Practice
DX: J06.9 Acute upper respiratory infection, unspecified (principal); M79.651 Pain in right thigh; Z79.899 Other long term (current) drug therapy; Z88.1 Allergy status to other antibiotic agents

== ENCOUNTER → 2022-07-09 | Outpatient (CLI) | payer BC ==
[~2022-07-09] MED LIST changes: +LORA1TAB23 PO; -LORA1TAB4 PO; +ZYRTTAB8 PO
== END ==
LOC: M ONCR 08:59
PROVIDERS: ATTEND General Practice
DX: C34.11 Malignant neoplasm of upper lobe, right bronchus or lung (principal); C79.51 Secondary malignant neoplasm of bone; F17.210 Nicotine dependence, cigarettes, uncomplicated; F12.90 Cannabis use, unspecified, uncomplicated; R09.81 Nasal congestion; Z79.52 Long term (current) use of systemic steroids; Z79.899 Other long term (current) drug therapy; Z88.1 Allergy status to other antibiotic agents; Z92.29 Personal history of other drug therapy; Z92.3 Personal history of irradiation

== ENCOUNTER → 2022-08-19 | Outpatient (CLI) | payer BC ==
[~2022-08-19] MED LIST changes: +CEPH500C PO; +COLA100C5 PO; +DULO1CAP6 PO; +GABA-1171 PO; +GABA-282 PO; +GASTROGRAFIN SOLUTION 30ML ONE; +ISOVUE-370 76% 100ML VIAL ONE; +LEVO1TAB40 PO; +PRED5PAK2 PO; +PRED5TA PO
== END ==
LOC: M PLAIMG 11:28
PROVIDERS: ATTEND Specialist
DX: C34.91 Malignant neoplasm of unspecified part of right bronchus or lung (principal); N28.1 Cyst of kidney, acquired; K57.30 Diverticulosis of large intestine without perforation or abscess without bleeding; K82.4 Cholesterolosis of gallbladder
CPT/HCPCS: 71260; 74177; Q9963; Q9967

== ENCOUNTER → 2022-08-29 | Outpatient (REF) | payer BC ==
[~2022-08-29] MED LIST changes: -GASTROGRAFIN SOLUTION 30ML ONE; -ISOVUE-370 76% 100ML VIAL ONE
== END ==
LOC: M SMT 12:56
PROVIDERS: ATTEND Urology
DX: R31.0 Gross hematuria (principal)

== ENCOUNTER → 2022-09-03 | Outpatient (CLI) | payer BC ==
[2022-09-03 14:16] LABS: BASO % 0.3 % (0.0-1.0); EOS % 0.3 % (0.0-3.0); HEMATOCRIT 37.8 % (36.0-47.0); HEMOGLOBIN 13.4 g/dl (12.0-15.5); LYMPH # 0.4 10^3/uL (1.5-5.0); LYMPH % 11.1 % (24.0-44.0); MEAN CORPUSCULAR HEMOGLOBIN 33.9 pg (27.0-33.0); MEAN CORPUSCULAR HGB CONC 35.4 g/dl (32.0-36.5); MEAN CORPUSCULAR VOLUME 95.7 fl (80.0-96.0); MONO # 0.1 10^3/uL (0.0-0.8); MONO % 1.6 % (2.0-8.0); NEUTROPHILS # 2.7 10^3/uL (1.5-8.5); NEUTROPHILS % 86.4 % (36.0-66.0); PLATELET COUNT, AUTOMATED 306 10^3/uL (150-450); RED BLOOD COUNT 3.95 10^6/uL (4.00-5.40); WHITE BLOOD COUNT 3.2 10^3/uL (4.0-10.0)
[2022-09-03 14:44] LABS: ALBUMIN 4.1 G/DL (3.2-5.2); ALKALINE PHOSPHATASE 111 U/L (46-116); ALT/SGPT 41 U/L (7.0-40); AST/SGOT < 8 U/L (<34); BILIRUBIN,TOTAL 1.3 MG/DL (0.3-1.2); BLOOD UREA NITROGEN 17 MG/DL (9-23); C REACTIVE PROTEIN QUANTITATIV < 0.40 MG/DL (<1.0); CALCIUM LEVEL 8.7 MG/DL (8.5-10.1); CARBON DIOXIDE LEVEL 23 MMOL/L (20-31); CHLORIDE LEVEL 108 MMOL/L (98-107); CREATININE FOR GFR 0.56 MG/DL (0.55-1.30); GLOMERULAR FILTRATION RATE > 60.0 (>58); GLUCOSE, FASTING 186 MG/DL (60-100); SODIUM LEVEL 140 MMOL/L (136-145); THYROID STIMULATING HORMONE 0.164 uIU/ML (0.55-4.78); TOTAL PROTEIN 6.6 G/DL (5.7-8.2)
[2022-09-03 14:45] LABS: FREE T3 3.2 PG/ML (2.3-4.2)
[2022-09-03 14:47] LABS: FREE T4 1.15 NG/DL (0.89-1.76)
== END ==
LOC: M LAB 13:22
PROVIDERS: ATTEND Internal Medicine Hematology & Oncology
DX: C34.91 Malignant neoplasm of unspecified part of right bronchus or lung (principal)

== ENCOUNTER → 2022-09-09 | Outpatient (CLI) | payer BC ==
[~2022-09-09] VITALS: Ht 167.6 cm; Wt 90.8 kg
[~2022-09-09] MED LIST changes: -LIDO1CRE42 TOP; +LIDO30CR18 TOP; +METH5TA PO
[2022-09-09 14:41] VITALS: BP 124/88; O2SAT 98
== END ==
LOC: M PAL 14:22
PROVIDERS: ATTEND Nurse Practitioner Adult Health
DX: C34.11 Malignant neoplasm of upper lobe, right bronchus or lung (principal); C79.51 Secondary malignant neoplasm of bone; F17.210 Nicotine dependence, cigarettes, uncomplicated; G89.3 Neoplasm related pain (acute) (chronic); G62.9 Polyneuropathy, unspecified; K58.8 Other irritable bowel syndrome; I10 Essential (primary) hypertension; K59.00 Constipation, unspecified; R53.83 Other fatigue; Z51.5 Encounter for palliative care; Z92.21 Personal history of antineoplastic chemotherapy; Z79.899 Other long term (current) drug therapy; Z79.891 Long term (current) use of opiate analgesic; Z79.51 Long term (current) use of inhaled steroids; Z88.1 Allergy status to other antibiotic agents; Z88.8 Allergy status to other drugs, medicaments and biological substances; Z85.41 Personal history of malignant neoplasm of cervix uteri; Z90.710 Acquired absence of both cervix and uterus; Z80.52 Family history of malignant neoplasm of bladder

== ENCOUNTER → 2022-09-18 | Outpatient (CLI) | payer BC ==
[~2022-09-18] VITALS: Ht 175.3 cm; Wt 92.2 kg
[~2022-09-18] MED LIST changes: +GABA-283 PO
[2022-09-18 08:51] VITALS: BP 118/82; O2SAT 99
== END ==
LOC: M PAL 08:45
PROVIDERS: ATTEND Nurse Practitioner Adult Health
DX: C34.90 Malignant neoplasm of unspecified part of unspecified bronchus or lung (principal); C79.51 Secondary malignant neoplasm of bone; Z92.3 Personal history of irradiation; Z51.5 Encounter for palliative care; Z92.21 Personal history of antineoplastic chemotherapy; K58.2 Mixed irritable bowel syndrome; G89.3 Neoplasm related pain (acute) (chronic); Z79.891 Long term (current) use of opiate analgesic; G62.0 Drug-induced polyneuropathy; F17.210 Nicotine dependence, cigarettes, uncomplicated; Z90.710 Acquired absence of both cervix and uterus; Z85.41 Personal history of malignant neoplasm of cervix uteri; Z79.899 Other long term (current) drug therapy; Z79.51 Long term (current) use of inhaled steroids

== ENCOUNTER → 2022-09-25 | Outpatient (CLI) | payer BC | LOC: M PAL 08:17 | PROVIDERS: ATTEND Nurse Practitioner Family | DX: G89.3 Neoplasm related pain (acute) (chronic) (principal); G62.0 Drug-induced polyneuropathy; Z51.5 Encounter for palliative care; Z79.891 Long term (current) use of opiate analgesic; C34.90 Malignant neoplasm of unspecified part of unspecified bronchus or lung; F17.210 Nicotine dependence, cigarettes, uncomplicated; Z80.52 Family history of malignant neoplasm of bladder; Z85.41 Personal history of malignant neoplasm of cervix uteri; Z79.899 Other long term (current) drug therapy; Z88.8 Allergy status to other drugs, medicaments and biological substances; Z88.1 Allergy status to other antibiotic agents ==

== ENCOUNTER → 2022-12-03 | Outpatient (CLI) | payer BC ==
[~2022-12-03] MED LIST changes: +ALBU2.5V10 IH; +AZIT-12 PO; -GABA-283 PO; +GABA-284 PO; +ROBILIQ13 PO; +VENTAER INH; +marijuana
[2022-12-03 14:50] LABS: BASO % 0.7 % (0.0-1.0); EOS # 0.1 10^3/uL (0.0-0.5); HEMATOCRIT 36.2 % (36.0-47.0); HEMOGLOBIN 12.9 g/dl (12.0-15.5); LYMPH # 1.2 10^3/uL (1.5-5.0); LYMPH % 19.9 % (24.0-44.0); MEAN CORPUSCULAR HGB CONC 35.6 g/dl (32.0-36.5); MEAN CORPUSCULAR VOLUME 92.6 fl (80.0-96.0); MONO # 0.6 10^3/uL (0.0-0.8); MONO % 10.4 % (2.0-8.0); NEUTROPHILS # 3.9 10^3/uL (1.5-8.5); PLATELET COUNT, AUTOMATED 335 10^3/uL (150-450); RED BLOOD COUNT 3.91 10^6/uL (4.00-5.40)
[2022-12-03 15:20] LABS: THYROID STIMULATING HORMONE 0.283 uIU/ML (0.55-4.78)
[2022-12-03 15:21] LABS: ALKALINE PHOSPHATASE 97 U/L (46-116); ALT/SGPT 63 U/L (7.0-40); AST/SGOT 24 U/L (<34); BLOOD UREA NITROGEN 18 MG/DL (9-23); CALCIUM LEVEL 9.3 MG/DL (8.5-10.1); CARBON DIOXIDE LEVEL 28 MMOL/L (20-31); CHLORIDE LEVEL 108 MMOL/L (98-107); CREATININE FOR GFR 0.66 MG/DL (0.55-1.30); GLOMERULAR FILTRATION RATE > 60.0 (>58); GLUCOSE, FASTING 110 MG/DL (60-100); POTASSIUM SERUM 4.2 MMOL/L (3.5-5.1); SODIUM LEVEL 140 MMOL/L (136-145); TOTAL PROTEIN 6.6 G/DL (5.7-8.2)
[2022-12-03 15:22] LABS: FREE T4 1.12 NG/DL (0.89-1.76)
== END ==
LOC: M LAB 14:11
PROVIDERS: ATTEND Nurse Practitioner
DX: G62.9 Polyneuropathy, unspecified (principal)

== ENCOUNTER → 2022-12-29 | Outpatient (CLI) | payer BC | LOC: M SOG 07:50 | PROVIDERS: ATTEND Orthopaedic Surgery | DX: M25.511 Pain in right shoulder (principal); M25.551 Pain in right hip; M19.011 Primary osteoarthritis, right shoulder; M89.551 Osteolysis, right thigh ==

== ENCOUNTER → 2022-12-31 | Outpatient (CLI) | payer BC | LOC: M ONCM 13:39 | DX: Z01.89 Encounter for other specified special examinations (principal) ==

== ENCOUNTER → 2023-01-06 | Outpatient (CLI) | payer BC ==
[~2023-01-06] MED LIST changes: +ISOVUE-300 61% 100ML VIAL As Ordered ONE
[2023-01-06 14:25] VITALS: BP 138/72; TEMP 97.9; O2SAT 99
== END ==
LOC: M IRPRO 14:10
PROVIDERS: ATTEND Nurse Practitioner
DX: T82.868A Thrombosis due to vascular prosthetic devices, implants and grafts, initial encounter (principal); C34.90 Malignant neoplasm of unspecified part of unspecified bronchus or lung
CPT/HCPCS: 36598; Q9967

== ENCOUNTER → 2023-01-09 | Outpatient (CLI) | payer BC ==
[~2023-01-09] VITALS: Ht 167.6 cm; Wt 99.1 kg
[~2023-01-09] MED LIST changes: +ACETAMINOPHEN 325 MG TAB As Ordered ONE; +ACETAMINOPHEN TAB 650MG DOSE (2X325MG) PO ONE; -ISOVUE-300 61% 100ML VIAL As Ordered ONE; +LIDOCAINE 1% MDV 20ML VIAL As Ordered ONE; +LIDOCAINE W/EPINEPHRINE 1% 20ML VIAL As Ordered ONE; +MIDAZOLAM INJ 2MG/2ML VIAL As Ordered ONE; +NS 1,000 ML IV SCH; +ceFAZolin 2 GM/D5W 50 ML IV BAG As Ordered ONE; +ceFAZolin SOD 2 GM in IV 1 EA IV ONE; +fentaNYL 100 MCG/2 ML INJECTION As Ordered ONE
[2023-01-09 10:15] VITALS: TEMP 97.7
[2023-01-09 13:00] VITALS: BP 164/89; O2SAT 98
== END ==
LOC: M IRPRO 10:04
PROVIDERS: ATTEND Radiology Diagnostic Radiology
DX: C34.90 Malignant neoplasm of unspecified part of unspecified bronchus or lung (principal); T82.868A Thrombosis due to vascular prosthetic devices, implants and grafts, initial encounter
CPT/HCPCS: 36561; 36590; 99152; 99153; J0690; J2250; J3010

== ENCOUNTER → 2023-04-01 | Outpatient (CLI) | payer BC ==
[~2023-04-01] MED LIST changes: -ACETAMINOPHEN 325 MG TAB As Ordered ONE; -ACETAMINOPHEN TAB 650MG DOSE (2X325MG) PO ONE; +HYDR-4468 PO; -LIDOCAINE 1% MDV 20ML VIAL As Ordered ONE; -LIDOCAINE W/EPINEPHRINE 1% 20ML VIAL As Ordered ONE; +LISI10TA22 PO; -MIDAZOLAM INJ 2MG/2ML VIAL As Ordered ONE; -NS 1,000 ML IV SCH; +NYST1POW9 TOP; +OXYB-54 PO; +VALI2TAB PO; -ceFAZolin 2 GM/D5W 50 ML IV BAG As Ordered ONE; -ceFAZolin SOD 2 GM in IV 1 EA IV ONE; -fentaNYL 100 MCG/2 ML INJECTION As Ordered ONE
== END ==
LOC: M SOG 08:16
PROVIDERS: ATTEND Orthopaedic Surgery
DX: M25.511 Pain in right shoulder (principal); M25.551 Pain in right hip; Z53.9 Procedure and treatment not carried out, unspecified reason

== ENCOUNTER → 2023-04-13 | Outpatient (CLI) | payer BC ==
[~2023-04-13] MED LIST changes: +CIPR-249 PO
== END ==
LOC: M PLARAD 07:39
PROVIDERS: ATTEND Internal Medicine Hematology & Oncology
DX: C34.81 Malignant neoplasm of overlapping sites of right bronchus and lung (principal); C79.51 Secondary malignant neoplasm of bone; Z92.21 Personal history of antineoplastic chemotherapy
CPT/HCPCS: 78815; A9552

== ENCOUNTER → 2023-05-25 | Outpatient (CLI) | payer BC ==
[~2023-05-25] MED LIST changes: +DULO60CA35 PO
== END ==
LOC: M RAD 10:51
PROVIDERS: ATTEND Internal Medicine Rheumatology
DX: M25.50 Pain in unspecified joint (principal); R76.8 Other specified abnormal immunological findings in serum; Z15.89 Genetic susceptibility to other disease; M19.049 Primary osteoarthritis, unspecified hand

== ENCOUNTER 2023-06-11 00:31 | Emergency (ER) | payer BC ==
[~2023-06-11] VITALS: Ht 167.6 cm; Wt 112.7 kg
[~2023-06-11 00:31] MED LIST changes: +DIPH1TAB81 PO; -DIPH2.5T15 PO
[2023-06-11] MEDS: MECLIZINE 25 MG TABLET PO ONE (03:06)
[2023-06-11] MEDS: ONDANSETRON 4MG ORAL DISINTEGRATING TAB PO ONE (03:06)
[2023-06-11] MEDS: diazePAM 5MG TABLET PO ONE (09:02)
[2023-06-11] MEDS ORDERED: ALBU2.5V10 INH (09:04)
[2023-06-11] MEDS ORDERED: PROC10TA5 PO (09:04)
[2023-06-11] MEDS ORDERED: GABA-284 PO (09:04)
[2023-06-11] MEDS ORDERED: OXYB-54 PO (09:04)
[2023-06-11] MEDS ORDERED: DOCU100C16 PO (09:04)
[2023-06-11] MEDS ORDERED: FOLI1TAB11 PO (09:04)
[2023-06-11] MEDS ORDERED: CORT10TA PO (09:04)
[2023-06-11] MEDS ORDERED: DULO1CAP6 PO (09:04)
[2023-06-11] MEDS ORDERED: ONDA-84 PO (09:04)
[2023-06-11] MEDS ORDERED: ESOM0.1C PO (09:04)
[2023-06-11] MEDS ORDERED: DEXA4TA PO (09:04)
[2023-06-11] MEDS ORDERED: DIPH1TAB81 PO (09:04)
[2023-06-11] MEDS ORDERED: VENTAER INH (09:04)
[2023-06-11] MEDS ORDERED: LISI10TA22 PO (09:04)
[2023-06-11] MEDS ORDERED: HOME MED LIST COMPLETE! XX SCH (09:05)
[2023-06-11] MEDS ORDERED: MECL-209 PO (10:52)
[2023-06-11] MEDS ORDERED: LEVO1TAB40 PO (10:54)
[2023-06-11 11:05] VITALS: BP 142/76; TEMP 97.9; O2SAT 97
== END 2023-06-11 11:13 | disposition home or self-care (01) ==
LOC: EDBD 00:31 → M ED 00:31
DX: J01.30 Acute sphenoidal sinusitis, unspecified (principal); R42 Dizziness and giddiness; I10 Essential (primary) hypertension; E66.9 Obesity, unspecified; K58.9 Irritable bowel syndrome, unspecified; Z85.41 Personal history of malignant neoplasm of cervix uteri; C34.90 Malignant neoplasm of unspecified part of unspecified bronchus or lung; Z87.891 Personal history of nicotine dependence; Z79.899 Other long term (current) drug therapy; Z88.1 Allergy status to other antibiotic agents; Z88.8 Allergy status to other drugs, medicaments and biological substances

== ENCOUNTER → 2023-08-18 | Outpatient (CLI) | payer BC ==
[~2023-08-18] MED LIST changes: +ALBU2.5V10 INH; +CETI-24 PO; +CETI10CH PO; +CORT10TA PO; +DOCU100C16 PO; +ESOM20CA2 PO; +GASTROGRAFIN SOLUTION 30ML As Ordered ONE; +ISOVUE-370 76% 100ML VIAL As Ordered ONE; +MECL-209 PO; +VALI5TAB PO; -ZOLP12.518 PO; +ZOLP12.535 PO; -ZOLP6.2517 PO; +ZOLP6.2526 PO
== END ==
LOC: M RAD 13:55
PROVIDERS: ATTEND Internal Medicine Hematology & Oncology
DX: C34.90 Malignant neoplasm of unspecified part of unspecified bronchus or lung (principal); R91.1 Solitary pulmonary nodule; J98.11 Atelectasis
CPT/HCPCS: 71260; 74177; Q9963; Q9967

== ENCOUNTER → 2023-08-26 | Outpatient (CLI) | payer BC ==
[~2023-08-26] MED LIST changes: +ESTRADIOL; -GASTROGRAFIN SOLUTION 30ML As Ordered ONE; -ISOVUE-370 76% 100ML VIAL As Ordered ONE; +PROHANCE 279.3MG/ML 15ML VIAL As Ordered ONE; +PROHANCE 279.3MG/ML 5ML VIAL As Ordered ONE
== END ==
LOC: M RAD 10:29
PROVIDERS: ATTEND Internal Medicine Hematology & Oncology
DX: C34.90 Malignant neoplasm of unspecified part of unspecified bronchus or lung (principal); M47.817 Spondylosis without myelopathy or radiculopathy, lumbosacral region; M51.26 Other intervertebral disc displacement, lumbar region; M51.24 Other intervertebral disc displacement, thoracic region; M50.221 Other cervical disc displacement at C4-C5 level
CPT/HCPCS: 72156; 72157; 72158; A9576

== ENCOUNTER → 2023-09-08 | Outpatient (CLI) | payer BC ==
[~2023-09-08] MED LIST changes: -PROHANCE 279.3MG/ML 15ML VIAL As Ordered ONE; -PROHANCE 279.3MG/ML 5ML VIAL As Ordered ONE
== END ==
LOC: M RAD 10:10
PROVIDERS: ATTEND Internal Medicine Hematology & Oncology
DX: C34.90 Malignant neoplasm of unspecified part of unspecified bronchus or lung (principal)
CPT/HCPCS: 78306; A9503

== ENCOUNTER → 2023-09-16 | Outpatient (CLI) | payer BC | LOC: M SOG 14:16 | PROVIDERS: ATTEND Orthopaedic Surgery | DX: M19.011 Primary osteoarthritis, right shoulder (principal); G57.21 Lesion of femoral nerve, right lower limb ==

== ENCOUNTER → 2023-10-01 | Outpatient (CLI) | payer BC | LOC: M PLAIMG 08:04 | PROVIDERS: ATTEND Internal Medicine Rheumatology | DX: M25.50 Pain in unspecified joint (principal); R76.8 Other specified abnormal immunological findings in serum; Z15.89 Genetic susceptibility to other disease; M19.042 Primary osteoarthritis, left hand; M19.041 Primary osteoarthritis, right hand ==

== ENCOUNTER → 2023-10-08 | Outpatient (CLI) | payer BC ==
[~2023-10-08] MED LIST changes: +ESTR1TAB
[2023-10-08 13:27] LABS: BASO # 0.1 10^3/uL (0.0-0.2); BASO % 0.9 % (0.0-1.0); EOS # 0.4 10^3/uL (0.0-0.5); EOS % 4.2 % (0.0-3.0); HEMATOCRIT 41.3 % (36.0-47.0); HEMOGLOBIN 14.3 g/dl (12.0-15.5); LYMPH # 1.3 10^3/uL (1.5-5.0); LYMPH % 15.1 % (24.0-44.0); MEAN CORPUSCULAR HEMOGLOBIN 32.1 pg (27.0-33.0); MEAN CORPUSCULAR HGB CONC 34.6 g/dl (32.0-36.5); MEAN CORPUSCULAR VOLUME 92.8 fl (80.0-96.0); MONO # 0.6 10^3/uL (0.0-0.8); MONO % 7.1 % (2.0-8.0); NEUTROPHILS # 6.2 10^3/uL (1.5-8.5); NEUTROPHILS % 71.4 % (36.0-66.0); PLATELET COUNT, AUTOMATED 307 10^3/uL (150-450); RED BLOOD COUNT 4.45 10^6/uL (4.00-5.40); WHITE BLOOD COUNT 8.6 10^3/uL (4.0-10.0)
[2023-10-08 14:06] LABS: ALBUMIN 3.6 G/DL (3.2-5.2); ALKALINE PHOSPHATASE 115 U/L (46-116); ALT/SGPT 43 U/L (7.0-40); AST/SGOT 13 U/L (<34); BILIRUBIN,TOTAL 0.9 MG/DL (0.3-1.2); BLOOD UREA NITROGEN 14 MG/DL (9-23); CALCIUM LEVEL 8.9 MG/DL (8.5-10.1); CARBON DIOXIDE LEVEL 27 MMOL/L (20-31); CHLORIDE LEVEL 105 MMOL/L (98-107); CREATININE FOR GFR 0.77 MG/DL (0.55-1.30); GLOMERULAR FILTRATION RATE > 60.0 (>58); GLUCOSE, FASTING 138 MG/DL (60-100); SODIUM LEVEL 138 MMOL/L (136-145); TOTAL PROTEIN 6.4 G/DL (5.7-8.2)
[2023-10-08 14:09] LABS: FREE T4 1.11 NG/DL (0.89-1.76); THYROID STIMULATING HORMONE 0.306 uIU/ML (0.55-4.78)
[2023-10-08 14:11] LABS: CARCINOEMBRYONIC ANTIGEN < 2.0 NG/ML (<2.5)
== END ==
LOC: M LAB 12:35
PROVIDERS: ATTEND Internal Medicine Hematology & Oncology
DX: C34.90 Malignant neoplasm of unspecified part of unspecified bronchus or lung (principal)

== ENCOUNTER → 2023-11-09 | Outpatient (CLI) | payer BC ==
[~2023-11-09] MED LIST changes: +GASTROGRAFIN SOLUTION 30ML As Ordered ONE; +ISOVUE-370 76% 100ML VIAL As Ordered ONE
== END ==
LOC: M RAD 09:05
PROVIDERS: ATTEND Internal Medicine Medical Oncology
DX: C34.90 Malignant neoplasm of unspecified part of unspecified bronchus or lung (principal)
CPT/HCPCS: 71260; 74177; Q9963; Q9967

== ENCOUNTER → 2023-12-09 | Outpatient (CLI) | payer BC ==
[~2023-12-09] MED LIST changes: +GABA-1172; +GABA-1172 PO; -GABA-282; -GABA-282 PO; -GASTROGRAFIN SOLUTION 30ML As Ordered ONE; -ISOVUE-370 76% 100ML VIAL As Ordered ONE
== END ==
LOC: M RAD 10:36
PROVIDERS: ATTEND Nurse Practitioner Family
DX: M25.572 Pain in left ankle and joints of left foot (principal)

== ENCOUNTER → 2024-01-01 | Outpatient (CLI) | payer BC ==
[~2024-01-01] MED LIST changes: +HYDR-643 PO
== END ==
LOC: M WHC 07:33
PROVIDERS: ATTEND Internal Medicine Medical Oncology
DX: Z12.31 Encounter for screening mammogram for malignant neoplasm of breast (principal); Z53.9 Procedure and treatment not carried out, unspecified reason

== ENCOUNTER → 2024-01-07 | Outpatient (CLI) | payer BC ==
[~2024-01-07] VITALS: Ht 167.6 cm; Wt 102.4 kg
[~2024-01-07] MED LIST changes: +AUGM500T34 PO; +LEVOTAB10 PO; +NYST1POW3 TOP; -NYST1POW9 TOP
[2024-01-07 13:09] VITALS: BP 120/72; O2SAT 96
== END ==
LOC: M PAL 12:42
PROVIDERS: ATTEND Nurse Practitioner Adult Health
DX: C34.90 Malignant neoplasm of unspecified part of unspecified bronchus or lung (principal); C79.51 Secondary malignant neoplasm of bone; G62.9 Polyneuropathy, unspecified; R05.9 Cough, unspecified; Z51.5 Encounter for palliative care; Z79.891 Long term (current) use of opiate analgesic; Z79.52 Long term (current) use of systemic steroids; Z79.899 Other long term (current) drug therapy; Z80.52 Family history of malignant neoplasm of bladder; Z85.41 Personal history of malignant neoplasm of cervix uteri; Z87.891 Personal history of nicotine dependence; Z92.21 Personal history of antineoplastic chemotherapy; Z92.3 Personal history of irradiation; Z90.710 Acquired absence of both cervix and uterus

== ENCOUNTER → 2024-02-04 | Outpatient (REF) | payer BC ==
[~2024-02-04] MED LIST changes: +OMEP40CA5 PO
[2024-02-04 14:08] LABS: THYROID PEROXIDASE ANTIBODY < 28.0 U/ML (<60.0); THYROID STIMULATING HORMONE 0.527 uIU/ML (0.55-4.78); TOTAL T3 124.2 NG/DL (60.0-181.0)
[2024-02-04 14:10] LABS: FREE T4 1.28 NG/DL (0.89-1.76)
== END ==
LOC: M LAB REF 13:23
PROVIDERS: ATTEND Nurse Practitioner Family
DX: E05.90 Thyrotoxicosis, unspecified without thyrotoxic crisis or storm (principal)

== ENCOUNTER → 2024-03-03 | Outpatient (REF) | payer BC ==
[~2024-03-03] MED LIST changes: +ATIV1TAB10 PO
[2024-03-03 15:45] LABS: FREE T4 1.19 NG/DL (0.89-1.76); THYROID STIMULATING HORMONE 0.2 uIU/ML (0.55-4.78)
== END ==
LOC: M LAB REF 14:44
PROVIDERS: ATTEND Nurse Practitioner Family
DX: E05.90 Thyrotoxicosis, unspecified without thyrotoxic crisis or storm (principal)

== ENCOUNTER → 2024-03-24 | Outpatient (REF) | payer BC ==
[2024-03-24 14:11] LABS: BASO % 0.6 % (0.0-1.0); EOS # 0.1 10^3/uL (0.0-0.5); EOS % 2.2 % (0.0-3.0); HEMATOCRIT 38.3 % (36.0-47.0); HEMOGLOBIN 13.5 g/dl (12.0-15.5); LYMPH # 1.3 10^3/uL (1.5-5.0); LYMPH % 23.2 % (24.0-44.0); MEAN CORPUSCULAR HEMOGLOBIN 31.8 pg (27.0-33.0); MEAN CORPUSCULAR HGB CONC 35.2 g/dl (32.0-36.5); MEAN CORPUSCULAR VOLUME 90.1 fl (80.0-96.0); MONO # 0.6 10^3/uL (0.0-0.8); NEUTROPHILS # 3.4 10^3/uL (1.5-8.5); NEUTROPHILS % 62.8 % (36.0-66.0); PLATELET COUNT, AUTOMATED 285 10^3/uL (150-450); RED BLOOD COUNT 4.25 10^6/uL (4.00-5.40); WHITE BLOOD COUNT 5.4 10^3/uL (4.0-10.0)
== END ==
LOC: M LAB REF 13:31
PROVIDERS: ATTEND Internal Medicine Rheumatology
DX: M25.50 Pain in unspecified joint (principal); R76.8 Other specified abnormal immunological findings in serum; Z15.89 Genetic susceptibility to other disease

== ENCOUNTER → 2024-03-28 | Outpatient (CLI) | payer BC ==
[~2024-03-28] MED LIST changes: +ISOVUE-370 76% 100ML VIAL As Ordered ONE; +PROHANCE 279.3MG/ML 15ML VIAL As Ordered ONE; +PROHANCE 279.3MG/ML 5ML VIAL As Ordered ONE
== END ==
LOC: M RAD 09:04
PROVIDERS: ATTEND Nurse Practitioner Women's Health
DX: C34.11 Malignant neoplasm of upper lobe, right bronchus or lung (principal); J47.9 Bronchiectasis, uncomplicated; J98.11 Atelectasis; Z95.828 Presence of other vascular implants and grafts; N28.1 Cyst of kidney, acquired; K57.30 Diverticulosis of large intestine without perforation or abscess without bleeding
CPT/HCPCS: 70553; 71260; 74177; A9576; Q9967

== ENCOUNTER → 2024-04-03 | Outpatient (CLI) | payer BC ==
[~2024-04-03] MED LIST changes: +CEFU50TA PO; -ISOVUE-370 76% 100ML VIAL As Ordered ONE; -PROHANCE 279.3MG/ML 15ML VIAL As Ordered ONE; -PROHANCE 279.3MG/ML 5ML VIAL As Ordered ONE; +PYRI1TAB5 PO
== END ==
LOC: M SLEEP 20:00
PROVIDERS: ATTEND Physician Assistant
DX: G47.33 Obstructive sleep apnea (adult) (pediatric) (principal)

== ENCOUNTER 2024-04-05 12:12 | Emergency (ER) | payer BC ==
[~2024-04-05] VITALS: Ht 167.6 cm; Wt 99.4 kg
[~2024-04-05 12:12] MED LIST changes: -CEFU50TA PO; -PYRI1TAB5 PO
[2024-04-05 12:59] LABS: KETONE, URINE AUTO RFX NEGATIVE (NEGATIVE); LEUKOCYTE ESTERASE UR AUTO RFX 1+ (NEGATIVE); NITRITE, URINE AUTO RFX POSITIVE (NEGATIVE); RBC, URINE AUTO RFX TNTC /HPF (0-3); SQUAM EPITHELIAL CELL UR AURFX 0 /HPF (0-6); WBC, URINE AUTO RFX TNTC /HPF (0-3)
[2024-04-05 13:32] LABS: BASO % 0.5 % (0.0-1.0); EOS # 0.1 10^3/uL (0.0-0.5); HEMATOCRIT 38.6 % (36.0-47.0); HEMOGLOBIN 13.8 g/dl (12.0-15.5); LYMPH # 0.3 10^3/uL (1.5-5.0); LYMPH % 7.3 % (24.0-44.0); MEAN CORPUSCULAR HEMOGLOBIN 31.7 pg (27.0-33.0); MEAN CORPUSCULAR HGB CONC 35.8 g/dl (32.0-36.5); MEAN CORPUSCULAR VOLUME 88.7 fl (80.0-96.0); MONO # 0.3 10^3/uL (0.0-0.8); MONO % 7.1 % (2.0-8.0); NEUTROPHILS # 3.5 10^3/uL (1.5-8.5); NEUTROPHILS % 80.7 % (36.0-66.0); PLATELET COUNT, AUTOMATED 205 10^3/uL (150-450); RED BLOOD COUNT 4.35 10^6/uL (4.00-5.40); WHITE BLOOD COUNT 4.4 10^3/uL (4.0-10.0)
[2024-04-05 13:45] LABS: INR 0.95; PARTIAL THROMBOPLASTIN TIME 27.1 SECONDS (24.8-34.2)
[2024-04-05 13:55] LABS: ALBUMIN 4.2 G/DL (3.2-5.2); ALKALINE PHOSPHATASE 134 U/L (35-104); ALT/SGPT 103 U/L (7.0-40); AST/SGOT 48 U/L (<34); BILIRUBIN,DIRECT 0.4 MG/DL (<0.4); BILIRUBIN,TOTAL 1.6 MG/DL (0.3-1.2); BLOOD UREA NITROGEN 13 MG/DL (9-23); CALCIUM LEVEL 8.5 MG/DL (8.5-10.1); CARBON DIOXIDE LEVEL 22 MMOL/L (20-31); CHLORIDE LEVEL 107 MMOL/L (98-107); GLOMERULAR FILTRATION RATE > 60.0 (>51); GLUCOSE, FASTING 117 MG/DL (60-100); POTASSIUM SERUM 3.6 MMOL/L (3.5-5.1); SODIUM LEVEL 141 MMOL/L (136-145); TOTAL PROTEIN 7.1 G/DL (5.7-8.2)
[2024-04-05] MEDS ORDERED: CEFU50TA PO (15:39)
[2024-04-05] MEDS ORDERED: PYRI1TAB5 PO (15:45)
[2024-04-05] MEDS: CEFUROXIME 500 MG TAB PO ONE (16:05)
[2024-04-05 16:13] VITALS: BP 142/68; TEMP 98.5; O2SAT 96
== END 2024-04-05 16:18 | disposition home or self-care (01) ==
LOC: M ED 12:12 → EDBD 12:12 → M ED 16:18
DX: N39.0 Urinary tract infection, site not specified (principal); R31.0 Gross hematuria; Z85.118 Personal history of other malignant neoplasm of bronchus and lung; Z92.21 Personal history of antineoplastic chemotherapy; Z79.899 Other long term (current) drug therapy; Z88.1 Allergy status to other antibiotic agents; Z88.8 Allergy status to other drugs, medicaments and biological substances

== ENCOUNTER → 2024-04-08 | Outpatient (CLI) | payer BC ==
[~2024-04-08] MED LIST changes: +CEFU50TA PO; +PYRI1TAB5 PO
== END ==
LOC: M RAD 11:03
PROVIDERS: ATTEND Otolaryngology
DX: J32.8 Other chronic sinusitis (principal); J34.2 Deviated nasal septum; J34.89 Other specified disorders of nose and nasal sinuses

== ENCOUNTER → 2024-06-06 | Outpatient (CLI) | payer BC ==
[~2024-06-06] MED LIST changes: +ISOVUE-370 76% 100ML VIAL As Ordered ONE
== END ==
LOC: M RAD 09:17
PROVIDERS: ATTEND Internal Medicine Medical Oncology
DX: C34.90 Malignant neoplasm of unspecified part of unspecified bronchus or lung (principal)

== ENCOUNTER → 2024-06-10 | Outpatient (CLI) | payer BC ==
[~2024-06-10] MED LIST changes: -ISOVUE-370 76% 100ML VIAL As Ordered ONE
== END ==
LOC: M SOG 07:57
PROVIDERS: ATTEND Orthopaedic Surgery
DX: M25.511 Pain in right shoulder (principal); M25.551 Pain in right hip; Z53.9 Procedure and treatment not carried out, unspecified reason

== ENCOUNTER → 2024-09-07 | Outpatient (CLI) | payer BC ==
[~2024-09-07] MED LIST changes: +HM C500T4 PO; +OXYB-54; +ROPI5TAB19
== END ==
LOC: M SOG 07:11
PROVIDERS: ATTEND Orthopaedic Surgery
DX: M25.551 Pain in right hip (principal); M25.511 Pain in right shoulder

== ENCOUNTER → 2024-09-12 | Outpatient (CLI) | payer BC | LOC: M SOG 11:24 | PROVIDERS: ATTEND Physician Assistant | DX: M79.672 Pain in left foot (principal); M25.579 Pain in unspecified ankle and joints of unspecified foot ==

== ENCOUNTER → 2024-09-22 | Outpatient (CLI) | payer BC ==
[~2024-09-22] MED LIST changes: +ACET-1515 PO; -ACET650T15 PO
== END ==
LOC: M RAD 07:48
PROVIDERS: ATTEND Physician Assistant
DX: M79.672 Pain in left foot (principal)

== ENCOUNTER → 2024-09-23 | Outpatient (CLI) | payer BC | LOC: M RAD 11:14 | PROVIDERS: ATTEND Urology | DX: N28.1 Cyst of kidney, acquired (principal) ==

== ENCOUNTER → 2024-09-27 | Outpatient (REF) | payer BC ==
[2024-09-27 13:45] LABS: APPEARANCE, URINE HAZY (CLEAR); BACTERIA, URINE AUTO NEGATIVE (NEGATIVE); BILIRUBIN, URINE AUTO NEGATIVE (NEGATIVE); BLOOD, URINE BLOOD 1+ (NEGATIVE); GLUCOSE, URINE (UA) AUTO NEGATIVE (NEGATIVE); KETONE, URINE AUTO NEGATIVE (NEGATIVE); LEUKOCYTE ESTERASE, URINE AUTO NEGATIVE (NEGATIVE); MUCUS, URINE SMALL (NEGATIVE); NITRITE, URINE AUTO NEGATIVE (NEGATIVE); PROTEIN, URINE AUTO NEGATIVE (NEGATIVE); RBC, URINE AUTO 0 /HPF (0-3); SPECIFIC GRAVITY URINE AUTO 1.017 (1.002-1.035); SQUAMOUS EPITHELIAL CELL UR AU 3 /HPF (0-6); UROBILINOGEN, URINE AUTO 0.2 mg/dL (0.0-2.0); WBC, URINE AUTO 5 /HPF (0-3)
== END ==
LOC: M SMT 12:49
PROVIDERS: ATTEND Urology
DX: Z87.440 Personal history of urinary (tract) infections (principal)

== ENCOUNTER → 2024-10-01 | Outpatient (CLI) | payer BC ==
[~2024-10-01] MED LIST changes: +MACR100C43 PO
== END ==
LOC: M RAD 08:51
PROVIDERS: ATTEND Internal Medicine Rheumatology
DX: M25.50 Pain in unspecified joint (principal); M16.11 Unilateral primary osteoarthritis, right hip; M71.351 Other bursal cyst, right hip; M46.1 Sacroiliitis, not elsewhere classified

== ENCOUNTER → 2024-11-10 | Outpatient (CLI) | payer BC ==
[~2024-11-10] MED LIST changes: +CRAN500T4 PO; -HM C500T4 PO; +ISOVUE-370 76% 100 ML VIAL ONE; -ZOLP5TAB PO; +ZOLP5TAB9 PO
== END ==
LOC: M PLAIMG 08:36
DX: C34.11 Malignant neoplasm of upper lobe, right bronchus or lung (principal); J43.2 Centrilobular emphysema
CPT/HCPCS: 71260; 74177; Q9967

== ENCOUNTER → 2024-11-15 | Outpatient (CLI) | payer BC ==
[~2024-11-15] MED LIST changes: -ISOVUE-370 76% 100 ML VIAL ONE
== END ==
LOC: M SOG 09:11
PROVIDERS: ATTEND Orthopaedic Surgery
DX: M25.551 Pain in right hip (principal); M54.50 Low back pain, unspecified

== ENCOUNTER → 2024-11-30 | Outpatient (CLI) | payer BC | LOC: M RAD 17:00 | PROVIDERS: ATTEND Orthopaedic Surgery | DX: M54.41 Lumbago with sciatica, right side (principal); M46.1 Sacroiliitis, not elsewhere classified; C34.90 Malignant neoplasm of unspecified part of unspecified bronchus or lung; M47.816 Spondylosis without myelopathy or radiculopathy, lumbar region; M47.817 Spondylosis without myelopathy or radiculopathy, lumbosacral region; M46.07 Spinal enthesopathy, lumbosacral region ==

== ENCOUNTER → 2024-12-28 | Outpatient (REF) | payer BC ==
[~2024-12-28] MED LIST changes: +AMOX500T2 PO; +AZIT-12; +CYCL5TAB4; +LIDO1PAD TOP; +LIDO5CRE6 TOP; +PRED10TA2; +ZOLP5TAB9
[2024-12-28 15:52] LABS: BASO # 0.0 10^3/uL (0.0-0.2); BASO % 0.2 % (0.0-1.0); EOS # 0.0 10^3/uL (0.0-0.5); EOS % 0.0 % (0.0-3.0); LYMPH # 0.6 10^3/uL (1.5-5.0); LYMPH % 7.3 % (24.0-44.0); MONO # 0.2 10^3/uL (0.0-0.8); MONO % 2.0 % (2.0-8.0); NEUTROPHILS # 7.6 10^3/uL (1.5-8.5); NEUTROPHILS % 89.2 % (36.0-66.0); PLATELET COUNT, AUTOMATED 327 10^3/uL (150-450)
[2024-12-28 16:32] LABS: ALT/SGPT 109 U/L (7.0-40); AST/SGOT 26 U/L (<34); C REACTIVE PROTEIN QUANTITATIV < 0.50 MG/DL (<1.0); CALCIUM LEVEL 8.8 MG/DL (8.5-10.1); CARBON DIOXIDE LEVEL 22 MMOL/L (20-31); CHLORIDE LEVEL 108 MMOL/L (98-107); CREATININE FOR GFR 0.71 MG/DL (0.55-1.30); GLOMERULAR FILTRATION RATE > 90.0 (>51); POTASSIUM SERUM 4.1 MMOL/L (3.5-5.1); SODIUM LEVEL 140 MMOL/L (136-145)
== END ==
LOC: M LAB REF 15:32
PROVIDERS: ATTEND Internal Medicine Rheumatology
DX: Z15.89 Genetic susceptibility to other disease (principal)

== ENCOUNTER → 2025-01-24 | Outpatient (CLI) | payer BC ==
[~2025-01-24] MED LIST changes: +BUTR5DIS TOP; +CYCL-707; +DULO30CA9 PO; +MECL-86; +MIRA3350 PO; +MYRB25TA PO; +SENN-186 PO
== END ==
LOC: M PLARAD 09:41
PROVIDERS: ATTEND Internal Medicine Medical Oncology
DX: C34.11 Malignant neoplasm of upper lobe, right bronchus or lung (principal)
CPT/HCPCS: 78815; A9552

== ENCOUNTER → 2025-02-15 | Outpatient (CLI) | payer BC ==
[~2025-02-15] MED LIST changes: +BUTR10DI TOP; +MAGN400T2 PO
== END ==
LOC: M PAL 14:48
PROVIDERS: ATTEND Physician Assistant
DX: Z51.5 Encounter for palliative care (principal); C34.90 Malignant neoplasm of unspecified part of unspecified bronchus or lung; C79.51 Secondary malignant neoplasm of bone; Z79.891 Long term (current) use of opiate analgesic; Z88.6 Allergy status to analgesic agent; Z88.5 Allergy status to narcotic agent; Z79.899 Other long term (current) drug therapy; Z79.83 Long term (current) use of bisphosphonates

== ENCOUNTER → 2025-02-16 | Outpatient (CLI) | payer BC | LOC: M PAL 09:01 | PROVIDERS: ATTEND Physician Assistant | DX: Z51.5 Encounter for palliative care (principal); C34.90 Malignant neoplasm of unspecified part of unspecified bronchus or lung; C79.51 Secondary malignant neoplasm of bone; Z79.891 Long term (current) use of opiate analgesic; Z88.2 Allergy status to sulfonamides; Z88.6 Allergy status to analgesic agent; Z79.899 Other long term (current) drug therapy ==